=== PATIENT | female | born 1955 | race Caucasian/White ===

== ENCOUNTER 2020-07-01 21:16 | Emergency (ER) | payer MEDICAID ==
[~2020-07-01] VITALS: Ht 165.1 cm; Wt 75.0 kg
[2020-07-01] MEDS ORDERED: methylPREDNISolone sod succ 125mg/2ml vial IV ONE (21:20)
[2020-07-01] MEDS ORDERED: famotidine/PF 10 mg/ml inj IV ONE (21:20)
[2020-07-01] MEDS ORDERED: diphenhydrAMINE 50 mg/ml inj IV ONE (21:20)
[2020-07-01] MEDS ORDERED: PRED20TA PO (21:50)
[2020-07-01] MEDS ORDERED: FAMO40TA73 PO (21:50)
[2020-07-01] MEDS ORDERED: DIPH25CA83 PO (21:50)
[2020-07-01] MEDS ORDERED: LORazepam 2 mg/ml vial IV ONE (21:55)
[2020-07-01] MEDS ORDERED: albuterol 2.5 MG/3 ML nebule NEB ONE (22:15)
[2020-07-02 00:37] VITALS: BP 118/75
== END 2020-07-02 00:39 | disposition home or self-care (01) ==
LOC: ER 21:17
DX: T78.40XA Allergy, unspecified, initial encounter (principal); E78.00 Pure hypercholesterolemia, unspecified; I10 Essential (primary) hypertension; M19.90 Unspecified osteoarthritis, unspecified site; Z91.018 Allergy to other foods; Z79.899 Other long term (current) drug therapy; X58.XXXA Exposure to other specified factors, initial encounter
CPT/HCPCS: 94640; 96374; 96375; 99291; J1200; J2060; J2930; J3490; 94760

== ENCOUNTER 2020-07-04 17:00 | Emergency (ER) | payer MEDICAID ==
[~2020-07-04] VITALS: Ht 165.1 cm; Wt 79.5 kg
[~2020-07-04 17:00] MED LIST: DIPH25CA83 PO; FAMO40TA73 PO; PRED20TA PO
[2020-07-04] MEDS ORDERED: racepinephrine 11.25mg/0.5ml nebule IH ONE (17:10)
[2020-07-04] MEDS ORDERED: famotidine/PF 10 mg/ml inj IV ONE (17:25)
[2020-07-04] MEDS ORDERED: diphenhydrAMINE 50 mg/ml inj IV ONE (17:25)
[2020-07-04] MEDS ORDERED: normal saline 1000ML IV soln IVB ONE (17:35)
[2020-07-04] MEDS ORDERED: LORazepam 2 mg/ml vial IV ONE (17:35)
--- NOTE | 2020-07-04 17:36 | NUR ---
PT STATES THAT AFTER BREATHING TX SHE IS FEELS DIZZY AND IS HAVING DIFFICULTY SWALLOWING. DR HAMM NOTIFIED
[2020-07-04] MEDS ORDERED: LIDOcaine Viscous 15ml cup MM PRN (18:15)
[2020-07-04] MEDS ORDERED: LORA-269 PO (19:19)
[2020-07-04 19:32] VITALS: BP 139/83
== END 2020-07-04 19:34 | disposition home or self-care (01) ==
LOC: ER 17:01
DX: J02.9 Acute pharyngitis, unspecified (principal); T45.0X5A Adverse effect of antiallergic and antiemetic drugs, initial encounter; T38.0X5A Adverse effect of glucocorticoids and synthetic analogues, initial encounter; T42.4X5A Adverse effect of benzodiazepines, initial encounter; T48.6X5A Adverse effect of antiasthmatics, initial encounter; R05 Cough; R06.2 Wheezing; E78.00 Pure hypercholesterolemia, unspecified; I10 Essential (primary) hypertension; M19.90 Unspecified osteoarthritis, unspecified site; Z91.018 Allergy to other foods; Z79.899 Other long term (current) drug therapy; Y92.89 Other specified places as the place of occurrence of the external cause
CPT/HCPCS: 94640; 96361; 96374; 96375; 99284; J1200; J2060; J3490; J7030; 94760

== ENCOUNTER 2020-07-31 22:49 | Emergency (ER) | payer MEDICAID ==
[~2020-07-31] VITALS: Ht 165.1 cm; Wt 86.4 kg
[~2020-07-31 22:49] MED LIST changes: +LORA-269 PO
[2020-07-31] MEDS ORDERED: LIDOcaine Viscous 15ml cup MM PRN (22:55)
[2020-07-31] MEDS: LORazepam 0.5 MG tablet PO PRN ×2 (23:01→23:30)
--- NOTE | 2020-07-31 23:01 | NUR ---
pt drove herself here, informed, will hold ativan.
[2020-07-31] MEDS ORDERED: benzonatate 100mg capsule PO ONE (23:05)
--- NOTE | 2020-07-31 23:27 | NUR ---
PT REPORT SHE CAN HAVE SOMEONE COME AND GET HER FOR DISCHARGE MD HAS ORDERED ATIVAN. MD UPDATED THAT PT REPORTING NO RELIEF OF HER SYMPTOMS AND THAT SHE FEELS THEY ARE WORSENING. .
[2020-08-01 00:22] VITALS: BP 153/81
--- NOTE | 2020-08-01 00:23 | NUR ---
DR. BEDOLLA AT BEDSIDE TO [facility] PT. PT REPORTS SOME IMPROVEMENT IN HER SYMPTOMS, BUT REMAINS CONCERNED ABOUT HER LYMPH NODES SWELLING AND SWOLLEN APPEARINIG NECK. PT WITH NO RESPIRATORY DISTRESS, RA SATS 98%, NO AIR WAY COMPROMISE, ABLE TO SPEAK CLEARLY AND MANAGE SECRETIONS. STATES HE VOICE IS DIFFERENT WHEN SHE SPEAKS. VSS.
[2020-08-01] MEDS ORDERED: LORA-268 PO (00:32)
== END 2020-08-01 00:56 | disposition home or self-care (01) ==
LOC: ER 22:50
DX: J02.9 Acute pharyngitis, unspecified (principal); R05 Cough; E78.00 Pure hypercholesterolemia, unspecified; I10 Essential (primary) hypertension; M19.90 Unspecified osteoarthritis, unspecified site; Z91.018 Allergy to other foods; Z79.899 Other long term (current) drug therapy
CPT/HCPCS: 99284

== ENCOUNTER 2020-08-25 10:53 | Emergency (ER) | payer MEDICAID ==
[~2020-08-25] VITALS: Ht 165.1 cm; Wt 89.1 kg
[~2020-08-25 10:53] MED LIST changes: +LORA-268 PO; -PRED20TA PO
--- NOTE | 2020-08-25 11:25 | NUR ---
SHERIF HOLLIDAY IN ROOM
--- NOTE | 2020-08-25 11:47 | NUR ---
PER PATIENT, SHE RECEIVED HER FIRST COVID VACCINATION AT 954 AND HER REACTION STARTED AT 1006 PA MG INFORMED
--- NOTE | 2020-08-25 11:48 | NUR ---
SHERIF HOLLIDAY CALLED POISON CONTROL AND SEPTEMBER WITH POISON CONTROL STATED THAT THE PATIENT SHOULD BE MONITORED FOR 4 HOURS PATIENT REPORTED TO SHERIF HOLLIDAY THAT SHE FELT DIZZY AFTER WALKING ABOUT 250 FEET TO BATHROOM AND BACK PATIENT RECEIVED 75 MG [facility]
[2020-08-25 11:58] LABS: BASOPHILS # (AUTO) 0.1 X10'3 (0-0.2); BASOPHILS % (AUTO) 0.8 % (0-1); EOSINOPHILS # (AUTO) 0.2 X10'3 (0-0.9); EOSINOPHILS % (AUTO) 2.2 % (0-6); HEMATOCRIT 42.4 % (35.0-45.0); HEMOGLOBIN 14.3 g/dl (12.0-16.0); LYMPHOCYTES # (AUTO) 2.2 X10'3 (1.1-4.8); LYMPHOCYTES % (AUTO) 31.3 % (21-51); MEAN CORPUSCULAR HEMOGLOBIN 29.7 PG (27.0-31.0); MEAN CORPUSCULAR HGB CONC 33.7 g/dL (33.0-36.5); MEAN CORPUSCULAR VOLUME 88.3 FL (78-98); MEAN PLATELET VOLUME 7.5 FL (7.4-10.4); MONOCYTES # (AUTO) 0.6 X10'3 (0-0.9); MONOCYTES % (AUTO) 8.5 % (2-12); NEUTROPHILS # (AUTO) 3.9 X10'3 (1.8-7.7); NEUTROPHILS % (AUTO) 57.2 % (42-75); PLATELET COUNT 317 X10'3 (140-440); RED CELL DISTRIBUTION WIDTH 13.1 % (11.5-14.5); WHITE BLOOD COUNT 6.9 X10'3 (4.5-11.0)
[2020-08-25] MEDS ORDERED: acetaminophen 325mg tablet PO ONE (12:10)
[2020-08-25 12:39] LABS: ALANINE AMINOTRANSFERASE 34 U/L (12-78); ALBUMIN 3.7 G/DL (3.4-5.0); ALBUMIN/GLOBULIN RATIO 1.1 (1.1-1.5); ALKALINE PHOSPHATASE 83 IU/L (46-116); ANION GAP 13 (8-16); ASPARTATE AMINO TRANSFERASE 21 U/L (10-37); BILIRUBIN,TOTAL 0.2 MG/DL (0.1-1.0); BLOOD UREA NITROGEN 14 MG/DL (7-18); BUN/CREATININE RATIO 18.2 (6.6-38.0); CALCIUM 9.2 MG/DL (8.5-10.1); CHLORIDE 106 MMOL/L (99-107); CREATININE 0.77 MG/DL (0.40-0.90); GLUCOSE 238 MG/DL (70-104); POTASSIUM 3.9 MMOL/L (3.5-5.1); SODIUM 141 MMOL/L (135-145); TOTAL CARBON DIOXIDE 22.5 MMOL/L (24-32); TOTAL PROTEIN 7.2 G/DL (6.4-8.2); eGFR 75 ML/MIN
--- NOTE | 2020-08-25 12:52 | NUR ---
PA IN ROOM, PATIETN WITH 2 BLANKETS ON, PATIENT STATES THAT LEGS FEEL COOL, WHILE HEAD IS HOT PATIENT TORSO, LEGS AND HEAD ARE HOT TO THE TOUCH. SUGGESTED REMOVING BLANKETS BUT PATIENT WANTS THE BLANKETS ON
--- NOTE | 2020-08-25 14:56 | NUR ---
PATIENT DENIES SOB, NAUSEA, MENDEZ AT THIS TIME. AMBULATED WNL, DENIES DIZZYNESS.
[2020-08-25 14:58] VITALS: BP 131/74
== END 2020-08-25 15:00 | disposition home or self-care (01) ==
LOC: ER 10:54
DX: R06.02 Shortness of breath (principal); T50.B95A Adverse effect of other viral vaccines, initial encounter; R42 Dizziness and giddiness; E78.00 Pure hypercholesterolemia, unspecified; I10 Essential (primary) hypertension; M19.90 Unspecified osteoarthritis, unspecified site; Z91.018 Allergy to other foods; Z79.899 Other long term (current) drug therapy; Y92.89 Other specified places as the place of occurrence of the external cause
CPT/HCPCS: 36415; 71045; 80053; 85025; 85610; 93005; 99285

== ENCOUNTER 2022-03-09 15:33 | Outpatient (CLI) | payer MEDICARE, MEDICAID | END 2022-03-09 23:59 | disposition home or self-care (01) | LOC: RAD 15:33 | PROVIDERS: ATTEND Ophthalmology | DX: Z01.818 Encounter for other preprocedural examination (principal); H02.831 Dermatochalasis of right upper eyelid; H02.834 Dermatochalasis of left upper eyelid | CPT/HCPCS: 93005 ==

== ENCOUNTER 2022-06-08 02:32 | Emergency (ER) | payer MEDICARE, MEDICAID ==
[~2022-06-08] VITALS: Ht 165.1 cm; Wt 86.8 kg
[2022-06-08 04:24] VITALS: BP 159/80
[2022-06-08] MEDS ORDERED: azithromycin 250mg tablet PO ONE (04:35)
[2022-06-08] MEDS ORDERED: HYDROcodone/acetaminophen 5mg/325mg tablet PO ONE (06:15)
[2022-06-08] MEDS ORDERED: AZIT-31 PO (06:23)
[2022-06-08] MEDS ORDERED: HYDR-3965 PO (06:23)
== END 2022-06-08 06:35 | disposition home or self-care (01) ==
LOC: ER 02:32
DX: H66.93 Otitis media, unspecified, bilateral (principal); J98.8 Other specified respiratory disorders; I10 Essential (primary) hypertension; E78.00 Pure hypercholesterolemia, unspecified; M19.90 Unspecified osteoarthritis, unspecified site; Z91.018 Allergy to other foods
CPT/HCPCS: 71045; 87502; 87503; 99284

== ENCOUNTER 2022-06-12 02:03 | Emergency (ER) | payer MEDICARE, MEDICAID ==
[~2022-06-12] VITALS: Ht 165.1 cm; Wt 84.1 kg
[~2022-06-12 02:03] MED LIST changes: +AZIT-31 PO; +HYDR-3965 PO
[2022-06-12 02:37] LABS: BASOPHILS # (AUTO) 0.1 X10'3 (0-0.2); BASOPHILS % (AUTO) 0.8 % (0-1); EOSINOPHILS # (AUTO) 0.6 X10'3 (0-0.9); EOSINOPHILS % (AUTO) 6.9 % (0-6); HEMATOCRIT 43.6 % (35.0-45.0); HEMOGLOBIN 14.6 g/dl (12.0-16.0); LYMPHOCYTES # (AUTO) 2.3 X10'3 (1.1-4.8); LYMPHOCYTES % (AUTO) 27.5 % (21-51); MEAN CORPUSCULAR HEMOGLOBIN 29.3 PG (27.0-31.0); MEAN CORPUSCULAR HGB CONC 33.5 g/dL (33.0-36.5); MEAN CORPUSCULAR VOLUME 87.6 FL (78-98); MEAN PLATELET VOLUME 7.1 FL (7.4-10.4); MONOCYTES # (AUTO) 0.7 X10'3 (0-0.9); MONOCYTES % (AUTO) 8.3 % (2-12); NEUTROPHILS # (AUTO) 4.6 X10'3 (1.8-7.7); NEUTROPHILS % (AUTO) 56.5 % (42-75); PLATELET COUNT 420 X10'3 (140-440); RED BLOOD COUNT 4.98 X10'6 (4.20-5.60); WHITE BLOOD COUNT 8.2 X10'3 (4.5-11.0)
[2022-06-12 03:12] LABS: ALANINE AMINOTRANSFERASE 28 U/L (12-78); ALBUMIN 3.3 G/DL (3.4-5.0); ALBUMIN/GLOBULIN RATIO 0.8 (1.1-1.5); ALKALINE PHOSPHATASE 88 IU/L (46-116); ANION GAP 12 (8-16); ASPARTATE AMINO TRANSFERASE 22 U/L (10-37); BILIRUBIN,TOTAL 0.1 MG/DL (0.1-1.0); BLOOD UREA NITROGEN 15 MG/DL (7-18); BUN/CREATININE RATIO 19.7 (6.6-38.0); CALCIUM 9.8 MG/DL (8.5-10.1); CHLORIDE 102 MMOL/L (99-107); CREATININE 0.76 MG/DL (0.40-0.90); GLUCOSE 201 MG/DL (70-104); POTASSIUM 3.5 MMOL/L (3.5-5.1); SODIUM 137 MMOL/L (135-145); TOTAL PROTEIN 7.3 G/DL (6.4-8.2); eGFR 76 ML/MIN
[2022-06-12 03:27] LABS: TOTAL CELLS COUNTED 100
[2022-06-12 03:28] LABS: GIANT PLATELET FEW; LARGE PLATELETS FEW; PLATELET ESTIMATE NORMAL; TEAR DROP CELLS FEW
[2022-06-12 08:11] VITALS: BP 146/83
[2022-06-12] MEDS ORDERED: PANT-47 PO (08:57)
[2022-06-12] MEDS ORDERED: BENZ-38 PO (08:57)
[2022-06-12] MEDS ORDERED: PROM5SYR2 PO (08:57)
[2022-06-12] MEDS ORDERED: ketorolac tromethamine 15mg/ml inj. IM ONE (09:00)
[2022-06-12] MEDS ORDERED: pantoprazole 40mg Tablet.DR PO ONE (09:00)
[2022-06-12] MEDS ORDERED: benzonatate 100mg capsule PO ONE (09:00)
[2022-06-12] MEDS ORDERED: pseudoephedrine 30mg tablet PO ONE (09:00)
== END 2022-06-12 09:46 | disposition home or self-care (01) ==
LOC: ER 02:04
DX: J02.9 Acute pharyngitis, unspecified (principal); E78.00 Pure hypercholesterolemia, unspecified; I10 Essential (primary) hypertension; Z91.018 Allergy to other foods; Z79.899 Other long term (current) drug therapy
CPT/HCPCS: 36415; 71045; 80053; 83880; 84484; 85007; 85025; 93005; 96372; 99285; J1885

== ENCOUNTER 2022-12-20 04:14 | Emergency (ER) | payer BC, MEDICAID ==
[~2022-12-20] VITALS: Ht 165.1 cm; Wt 80.9 kg
[~2022-12-20 04:14] MED LIST changes: -AZIT-31 PO; -HYDR-3965 PO; +PANT-47 PO; +PROM5SYR2 PO
[2022-12-20] MEDS ORDERED: ondansetron/PF 4mg/2ml inj IV ONE (04:35)
[2022-12-20] MEDS ORDERED: morphine 4 MG/ML inj SYRINge IV ONE (04:35)
[2022-12-20] MEDS ORDERED: FENO200C27 PO (05:08)
[2022-12-20] MEDS ORDERED: ESTR50GE TOP (05:08)
[2022-12-20] MEDS ORDERED: DULO60CA65 PO (05:08)
[2022-12-20] MEDS ORDERED: ROSU10TA28 PO (05:08)
[2022-12-20] MEDS ORDERED: METF-438 PO (05:08)
[2022-12-20] MEDS ORDERED: SPIR100T5 PO (05:08)
[2022-12-20] MEDS ORDERED: NALT1TAB PO (05:08)
[2022-12-20] MEDS ORDERED: ASPI81TA52 PO (05:08)
--- NOTE | 2022-12-20 05:13 | NUR ---
pt to ct
[2022-12-20] MEDS ORDERED: FLO0.4C PO (05:25)
[2022-12-20] MEDS ORDERED: IBUP-1984 PO (05:25)
[2022-12-20] MEDS ORDERED: HYDR-3973 PO (05:25)
[2022-12-20] MEDS ORDERED: ONDA4TAB12 PO (05:25)
[2022-12-20] MEDS ORDERED: ketorolac tromethamine 15mg/ml inj. IV ONE (05:30)
[2022-12-20 05:31] LABS: CLARITY,URINE SLIGHTLY CLOUDY (Clear); COLOR,URINE YELLOW (Yellow); GLUCOSE, URINE NEGATIVE (Neg); KETONES,URINE NEGATIVE (Neg); LEUKOCYTE ESTERASE ,URINE TRACE (Neg); NITRITES, URINE NEGATIVE (Neg); OCCULT BLOOD,URINE LARGE (Neg); PROTEIN,URINE NEGATIVE (Neg); UROBILINOGEN,URINE 0.2 E.U/dL (0.2-1.0)
[2022-12-20 05:31] LABS: BASOPHILS # (AUTO) 0.1 X10'3 (0-0.2); BASOPHILS % (AUTO) 0.8 % (0-1); EOSINOPHILS # (AUTO) 0.2 X10'3 (0-0.9); EOSINOPHILS % (AUTO) 2.6 % (0-6); HEMATOCRIT 43.9 % (35.0-45.0); HEMOGLOBIN 14.8 g/dl (12.0-16.0); LYMPHOCYTES # (AUTO) 3.3 X10'3 (1.1-4.8); LYMPHOCYTES % (AUTO) 37.9 % (21-51); MEAN CORPUSCULAR HEMOGLOBIN 29.9 PG (27.0-31.0); MEAN CORPUSCULAR HGB CONC 33.7 g/dL (33.0-36.5); MEAN CORPUSCULAR VOLUME 88.6 FL (78-98); MEAN PLATELET VOLUME 7.3 FL (7.4-10.4); MONOCYTES # (AUTO) 0.5 X10'3 (0-0.9); MONOCYTES % (AUTO) 6.3 % (2-12); NEUTROPHILS # (AUTO) 4.6 X10'3 (1.8-7.7); NEUTROPHILS % (AUTO) 52.4 % (42-75); PLATELET COUNT 414 X10'3 (140-440); RED BLOOD COUNT 4.95 X10'6 (4.20-5.60); RED CELL DISTRIBUTION WIDTH 13.1 % (11.5-14.5); WHITE BLOOD COUNT 8.8 X10'3 (4.5-11.0)
[2022-12-20 05:41] LABS: ALANINE AMINOTRANSFERASE 28 U/L (12-78); ALBUMIN/GLOBULIN RATIO 1.3 (1.1-1.5); ALKALINE PHOSPHATASE 56 IU/L (46-116); ANION GAP 13 (8-16); ASPARTATE AMINO TRANSFERASE 19 U/L (10-37); BILIRUBIN,TOTAL 0.2 MG/DL (0.1-1.0); BLOOD UREA NITROGEN 14 MG/DL (7-18); BUN/CREATININE RATIO 15.2 (10.0-20.0); CHLORIDE 105 MMOL/L (99-107); CREATININE 0.92 MG/DL (0.40-0.90); GLUCOSE 173 MG/DL (70-104); LIPASE 153 U/L (73-393); SODIUM 142 MMOL/L (135-145); TOTAL PROTEIN 7.1 G/DL (6.4-8.2); eGFR 61 ML/MIN
[2022-12-20 05:42] LABS: UA COLLECTION TYPE CLN CATCH MIDSTREAM
[2022-12-20 05:51] LABS: RBC,URINE 20-50 /HPF (0-2)
[2022-12-20 05:52] LABS: BACTERIA,URINE 2+ /HPF (Neg); MUCUS STRANDS MANY /LPF (Neg); RENAL CELLS, URINE FEW /HPF; SQUAMOUS EPITHELIAL CELL,UR MODERATE /LPF (FEW)
[2022-12-20 05:54] LABS: CAL OXALATE CRYSTALS FEW /HPF (NEGATIVE)
[2022-12-20 05:55] LABS: YEAST MODERATE /HPF (NEGATIVE)
[2022-12-20] MEDS ORDERED: morphine 4 MG/ML inj SYRINge IM ONE (06:20)
[2022-12-20 06:53] VITALS: BP 178/106
--- NOTE | 2022-12-20 06:55 | NUR ---
PT BP 178/106. PT STATES SHE WILL TAKE BP MED ONCE HOME. RN NOTIFIED DR BUNDY AND DR BUNDY IS OKAY WITH DISCHARGE IF PT AGREES TO TAKE HER MED ONCE HOME.
== END 2022-12-20 06:58 | disposition home or self-care (01) ==
LOC: ER 04:15
DX: N23 Unspecified renal colic (principal); E78.00 Pure hypercholesterolemia, unspecified; I10 Essential (primary) hypertension; Z91.018 Allergy to other foods; Z88.8 Allergy status to other drugs, medicaments and biological substances; Z79.84 Long term (current) use of oral hypoglycemic drugs; Z79.82 Long term (current) use of aspirin
CPT/HCPCS: 36415; 74176; 80053; 81001; 83690; 85025; 87088; 96372; 96374; 96375; 99285; J1885; J2270; J2405; J7030; 96376